=== PATIENT | female | born 1965 | race Two or more races ===

== ENCOUNTER 2022-08-23 12:51 | Outpatient (REF) | payer SELFPAY | END 2022-08-23 12:52 | disposition home or self-care (01) | LOC: HO.HAP 12:51 | PROVIDERS: Visit Provider Nurse Practitioner Family | DX: Z13.89 Encounter for screening for other disorder (principal) ==

== ENCOUNTER 2023-02-25 14:51 | Outpatient (REF) | payer SELFPAY | END 2023-02-25 14:52 | disposition home or self-care (01) | LOC: HO.HAP 14:51 | PROVIDERS: Visit Provider Nurse Practitioner Family | DX: Z13.89 Encounter for screening for other disorder (principal) ==

== ENCOUNTER 2023-06-06 08:54 | Outpatient (REF) | payer SELFPAY ==
--- NOTE | 2023-06-06 09:40 | MHC.AU.HA3 ---
Hearing Instrument Follow-Up- Binaural Date of Visit: 06/06/23 Right Ear: Kyler, Model, Color, Serial Number: Oticon More 2 miniRITE-R SN: [id number] Color: Camille Black [employer] Repair Warranty: 08/26/2025 [employer] Loss and Damage Warranty: 08/26/2025 [facility] Service Plan: 08/11/2023 Battery Size: Rechargeable [employer] Associate/Slim Tube: 2/85 Earmold/Dome/CShell/SlimTip:6mm open harris dome with retention tail Type of Wax Guard: miniFit Dispensed By: [facility] Date of Fittin08/10/2022 Left Ear: Kyler, Model, Color, Serial Number: Oticon More 2 miniRITE-R SN: [id number] Color: Camille Black [employer] Teacher Repair Warranty: 08/26/2025 [employer] Loss and Damage Warranty: 08/26/2025 [facility] Service Plan: 08/11/2023 Battery Size: Rechargeable [employer] Associate/Slim Tube: 2/85 Earmold/Dome/CShell/SlimTip: 6mm open harris dome with retention tail Type of Wax Guard: miniFit Dispensed By: [facility] Date of Fittin08/10/2022 Follow-Up Summary: Jodi reported for the past few weeks she has not been hearing as well with the hearing aids. She is asking for more repetition and the television volume needs to be increased. Significant wax build up noted on receivers and dust/debris in microphones. Cleaned hearing aids. Replaced domes, wax guards, and retention tails. Vacuumed microphones. A listening check demonstrated hearing aids are amplifying clearly. Also updated firmware via [employer]. Otoscopy clear, bilaterally. Reinstructed how to change domes and wax guards. Jodi noticed immediate improvement in sound quality after cleaning. Discussed [facility] [place] [facility] Service Agreement again - Jodi already had appointment scheduled on 07/26/2023. She opted to keep that appointment for one additional cleaning prior to the service agreement ending. Recommendations: Hearing instrument follow-up or maintenance as needed. Please contact our clinic with any questions or concerns. Diagnosis Code(s): Primary Diagnosis: H90.3 Bilateral Sensorineural Hearing Loss Signature: Provider: Sonja Anguiano., [facility]
== END 2023-06-06 08:55 | disposition home or self-care (01) ==
LOC: HO.HAP 08:54
PROVIDERS: Visit Provider Internal Medicine
DX: Z13.89 Encounter for screening for other disorder (principal)

== ENCOUNTER 2023-07-22 08:00 | Outpatient (REF) | payer SELFPAY | END 2023-07-22 08:01 | disposition home or self-care (01) | LOC: HO.HAP 08:00 | PROVIDERS: Visit Provider Internal Medicine | DX: Z13.89 Encounter for screening for other disorder (principal) ==

== ENCOUNTER 2024-10-20 07:51 | Outpatient (REF) | payer SELFPAY ==
--- OUTSIDE RECORDS SUMMARY | 2024-10-20 07:52 | XMS_ITS | Patient Health Record ---
Author Organization [facility] Breann antoine Helotes Address [address] [place] [address] Care Team Providers Care Project Designer Name Role Phone Rangel Sanchez MD Primary Care Provider Aydee Rahman Unavailable [phone] Allergies Allergen (clinical drug ingredient) Drug/Non Drug Allergy documented on EMR Reaction Allergy Type Onset Date Status Latex Latex Unknown Allergy Active Results Component Value Reference Range Notes HEMOGLOBIN A1C (GLYCOHEMOGLO BIN) Reviewed date:06/26/2024 09:31:16 AM Interpretation: Performing Lab: Notes/Report: HEMOGLOBIN A1C % (HH) 6.2 Reason For Referral Diagnosis 1 Psoriasis vulgaris ( L40.0) Referring Provider First Name Rangel Referring Provider Last Name Daniel [facility] Referred Provider Aydee Shepard Referred Address [address] [place] [address],[facility] [address] [place] [id number], Referred Provider Specialty Podiatry Referral Priority Routine Medications Medication SIG (Take, Route, Frequency, Duration) Notes Start Date End Date Status Vitamin D 50 MCG (1999) 1 tablet Oral ly Once a day Active B Complex Active Magnesium Active Leflunomide 20 MG 1 tablet Orally Once a day Active Betamethasone Dipropionate Aug 0.05 % 1 application Externally Once a day 06/26/2024 Active Humira (2 Syringe) 40 MG/0.4ML as directed Subcutaneous Act gala Folic Acid 1 MG 1 tablet Orally Once a day Active Social History Tobacco Use: Social History Observation Description Date Details (start date - stop date) Never Smoker NA - NA Tobacco use other than smoking: Question Answer Notes Are you an other tobacco user? No Tobacco Control (Standard) Question Answer Notes Tobacco use: Nonsmoker Additional Findings: Tobacco non-user Current no nsmoker AUDIT-C (Standard) Question Answer Notes Did you have a drink containing alcohol in the p ast year? No Points 0 Interpretation Negative Problems Problem Type SNOMED Code ICD Code Onset Dates Problem Status W/U Status Risk Notes Problem Psoriasis vulgaris (713528177) Psoriasis vulgaris (L40.0) Active confirmed Problem 3681169 Psoriasis (L40.9) Active confirmed Problem Plaque psoriasis (270590700) Plaque psoriasis (L40.0) Active confirmed Vital Signs Height 5ft 2in in 06/26/2024 Weight 190 lbs 06/26/2024 BMI 34.75 kg/m2 06/26/2024 Encounters Encounter Location Date Provider Diagnosis [facility] [address] [id number] 06/26/2024 Aydee Shepard Psoriasis L40.9 and Plaque psoriasis L40.0 Assessments Encounter Date Diagnosis (ICD Code) Assessment Notes Treatment Notes Treatment Clinical Notes Section Notes 06/26/2024 Psoriasis (ICD-10 - L40.9) 06/26/2024 Plaque psoriasis (ICD-10 - L40.0) Plan Of Treatment No Information Insurance Providers Payer Name Payer Address Payer Phone Subscriber Number Group Number Insured Name Patient Relationship to Insured Coverage Start Date Coverage End Date [facility] [address] [place] [address] [id number] Jodi Manzanares Self - patient is the insured Medical (General) History Medical History History ICD Code Arthritis Back,Hip,and Knee pain covid-19 Diverticulitis Gall bladder High Blood Pressure Psoriasis/eczema Reflux ( GERD) Sjogren syndrome Diabetic
== END 2024-10-20 07:52 | disposition home or self-care (01) ==
LOC: HO.HAP 07:51
PROVIDERS: PCP Internal Medicine; Visit Provider Internal Medicine
DX: Z46.1 Encounter for fitting and adjustment of hearing aid (principal); H90.3 Sensorineural hearing loss, bilateral
CPT/HCPCS: 92593; V5267